=== PATIENT | female | born 1975 | race Caucasian/White ===

== ENCOUNTER 2022-10-04 12:24 | Inpatient (IN) | payer OTHER ==
[2022-10-04 13:08] VITALS: BMI 33.4
[2022-10-04] MEDS ORDERED: MAGNESIUM HYDROX 2400MG/30ML ORAL SUSPENSION 30 ML CUP PO PRN (13:29)
[2022-10-04] MEDS ORDERED: MAG HYDROX/AL HYDROX/SIMETH 30 ML UNIT-DOSE CUP PO PRN (13:29)
[2022-10-04] MEDS ORDERED: BISMUTH SUBSALICYLATE 262 MG/15 ML BTL PO PRN (13:29)
[2022-10-04] MEDS ORDERED: LOPERAMIDE HCL 2 MG CAPSULE PO PRN (13:29)
[2022-10-04] MEDS ORDERED: ONDANSETRON *ODT* 4 MG TABLET SL PRN (13:29)
[2022-10-04] MEDS ORDERED: METHOCARBAMOL 500 MG TABLET PO PRN (13:29)
[2022-10-04] MEDS ORDERED: NICOTINE 10 MG CARTRIDGE (INHALER) IH PRN (13:29)
[2022-10-04] MEDS ORDERED: DICYCLOMINE HCL 10 MG CAPSULE PO PRN (13:29)
[2022-10-04] MEDS ORDERED: ACETAMINOPHEN 325 MG TABLET (FP) PO PRN ×2 (13:29)
[2022-10-04] MEDS ORDERED: POLYETHYLENE GLYCOL (HEALTHYLAX) 3350 17 GM PACKET PO PRN (13:29)
[2022-10-04] MEDS ORDERED: hydrOXYzine PAMOATE 25 MG CAPSULE (FP) PO PRN (13:29)
[2022-10-04] MEDS ORDERED: IBUPROFEN 600 MG TABLET (FP) PO PRN (13:29)
[2022-10-04] MEDS ORDERED: LORazepam 1 MG TABLET PO PRN (13:29)
[2022-10-04] MEDS ORDERED: IBUPROFEN 400 MG TABLET (FP) PO PRN (13:29)
[2022-10-04] MEDS ORDERED: BENZOCAINE/MENTHOL (CHLORASEPTIC ) LOZENGE MM PRN (13:29)
[2022-10-04] MEDS ORDERED: NALOXONE HCL (KLOXXADO) 8 MG SPRAY NS PRN (13:29)
[2022-10-04] MEDS ORDERED: LORazepam 1 MG TABLET ONE (14:11)
[2022-10-04] MEDS: NICOTINE 14 MG/24 HOURS TOPICAL PATCH TD SCH (15:06)
[2022-10-04] MEDS: PRENATAL VITAMINS W/ FOLIC ACID TABLET (FP) PO SCH (15:06)
[2022-10-04] MEDS: LORazepam 2 MG TABLET PO SCH ×2 (17:21→22:00)
[2022-10-04] MEDS: metFORMIN HCL 500 MG TABLET (FP) PO SCH (17:21)
[2022-10-04 18:11] LABS: MCH 31.9 pg (25.7-33.7); MCHC 34.2 g/dl (32.0-36.0); MEAN CELL VOLUME 93.3 fl (80-96); PLATELET COUNT 184 10^3/uL (134-434); RBC 4.39 M/mm3 (3.60-5.2); RDW 14.8 % (11.6-15.6); WHITE BLOOD COUNT 7.5 K/mm3 (4.0-10.0)
[2022-10-04 18:12] LABS: ALBUMIN 3.3 g/dl (3.4-5.0)
[2022-10-04 18:15] LABS: CREATININE 0.8 mg/dL (0.55-1.3)
[2022-10-04 18:17] LABS: BILIRUBIN,TOTAL 0.3 mg/dL (0.2-1); TOT PROT 7.2 g/dl (6.4-8.2)
[2022-10-04] MEDS: risperiDONE 1 MG TABLET PO SCH (21:47)
[2022-10-04] MEDS: QUEtiapine FUMARATE 50 MG TABLET PO SCH (21:47)
[2022-10-04] MEDS: THIAMINE HCL 100 MG TABLET (FP) PO SCH (21:48)
[2022-10-04] MEDS: APIXABAN 5 MG TABLET PO SCH (21:48)
[2022-10-04] MEDS: DIVALPROEX SODIUM 500 MG TABLET E.C. PO SCH (21:48)
[2022-10-04] MEDS: MELATONIN 5 MG TABLETS PO SCH (22:07)
[2022-10-05] MEDS: LORazepam 2 MG TABLET PO SCH ×4 (05:44→22:16)
[2022-10-05] MEDS: metFORMIN HCL 500 MG TABLET (FP) PO SCH ×2 (06:08→17:44)
[2022-10-05] MEDS ORDERED: methaDONE HCL 40 MG DISPERSABLE TABLET PO SCH (08:00)
[2022-10-05] MEDS: DIVALPROEX SODIUM 500 MG TABLET E.C. PO SCH ×2 (09:39→22:16)
[2022-10-05] MEDS: risperiDONE 1 MG TABLET PO SCH ×2 (09:39→22:16)
[2022-10-05] MEDS: APIXABAN 5 MG TABLET PO SCH ×2 (09:39→22:16)
[2022-10-05] MEDS: PRENATAL VITAMINS W/ FOLIC ACID TABLET (FP) PO SCH (09:39)
[2022-10-05] MEDS: NICOTINE 14 MG/24 HOURS TOPICAL PATCH TD SCH (09:40)
[2022-10-05] MEDS: INSULIN SLIDING SCALE (NOVOLOG) 1 VIAL SQ SCH ×2 (11:46→17:47)
[2022-10-05] MEDS: QUEtiapine FUMARATE 50 MG TABLET PO SCH (22:16)
[2022-10-05] MEDS: MELATONIN 5 MG TABLETS PO SCH (22:16)
[2022-10-05] MEDS: THIAMINE HCL 100 MG TABLET (FP) PO SCH (22:16)
[2022-10-06] MEDS ORDERED: INSULIN SLIDING SCALE (NOVOLOG) 1 VIAL SQ ONE (04:06)
[2022-10-06] MEDS: LORazepam 1 MG TABLET PO SCH ×4 (05:44→22:24)
[2022-10-06] MEDS: metFORMIN HCL 500 MG TABLET (FP) PO SCH ×2 (06:02→17:24)
[2022-10-06] MEDS: INSULIN SLIDING SCALE (NOVOLOG) 1 VIAL SQ SCH ×3 (06:03→17:10)
[2022-10-06] MEDS: PRENATAL VITAMINS W/ FOLIC ACID TABLET (FP) PO SCH (09:37)
[2022-10-06] MEDS: risperiDONE 1 MG TABLET PO SCH ×2 (09:37→22:23)
[2022-10-06] MEDS: DIVALPROEX SODIUM 500 MG TABLET E.C. PO SCH ×2 (09:37→22:23)
[2022-10-06] MEDS: NICOTINE 14 MG/24 HOURS TOPICAL PATCH TD SCH (09:38)
[2022-10-06] MEDS: APIXABAN 5 MG TABLET PO SCH ×2 (09:39→22:23)
[2022-10-06] MEDS: THIAMINE HCL 100 MG TABLET (FP) PO SCH (22:23)
[2022-10-06] MEDS: MELATONIN 5 MG TABLETS PO SCH (22:23)
[2022-10-06] MEDS: QUEtiapine FUMARATE 50 MG TABLET PO SCH (22:23)
[2022-10-07] MEDS ORDERED: LORazepam 0.5 MG TABLET PO PRN
[2022-10-07] MEDS: LORazepam 0.5 MG TABLET PO SCH ×4 (05:33→22:06)
[2022-10-07] MEDS: metFORMIN HCL 500 MG TABLET (FP) PO SCH ×2 (06:01→17:17)
[2022-10-07] MEDS: INSULIN SLIDING SCALE (NOVOLOG) 1 VIAL SQ SCH ×3 (06:01→17:00)
[2022-10-07] MEDS: DIVALPROEX SODIUM 500 MG TABLET E.C. PO SCH ×2 (10:08→22:06)
[2022-10-07] MEDS: PRENATAL VITAMINS W/ FOLIC ACID TABLET (FP) PO SCH (10:08)
[2022-10-07] MEDS: APIXABAN 5 MG TABLET PO SCH ×2 (10:08→22:06)
[2022-10-07] MEDS: risperiDONE 1 MG TABLET PO SCH ×2 (10:08→22:06)
[2022-10-07] MEDS: NICOTINE 14 MG/24 HOURS TOPICAL PATCH TD SCH (10:09)
[2022-10-07] MEDS: QUEtiapine FUMARATE 50 MG TABLET PO SCH (22:06)
[2022-10-07] MEDS: THIAMINE HCL 100 MG TABLET (FP) PO SCH (22:06)
[2022-10-07] MEDS: MELATONIN 5 MG TABLETS PO SCH (22:06)
[2022-10-08] MEDS ORDERED: INSULIN SLIDING SCALE (NOVOLOG) 1 VIAL SQ ONE (03:16)
[2022-10-08] MEDS ORDERED: LORazepam 0.5 MG TABLET PO ONE (05:00)
[2022-10-08] MEDS: metFORMIN HCL 500 MG TABLET (FP) PO SCH (06:30)
[2022-10-08 07:15] VITALS: RESP 18
[2022-10-08] MEDS: INSULIN SLIDING SCALE (NOVOLOG) 1 VIAL SQ SCH ×2 (08:22→11:37)
[2022-10-08 09:06] VITALS: BP 108/62; PULSE 62; TEMP 97.7
[2022-10-08] MEDS: APIXABAN 5 MG TABLET PO SCH (10:13)
[2022-10-08] MEDS: PRENATAL VITAMINS W/ FOLIC ACID TABLET (FP) PO SCH (10:13)
[2022-10-08] MEDS: DIVALPROEX SODIUM 500 MG TABLET E.C. PO SCH (10:13)
[2022-10-08] MEDS: risperiDONE 1 MG TABLET PO SCH (10:13)
[2022-10-08] MEDS: NICOTINE 14 MG/24 HOURS TOPICAL PATCH TD SCH (10:13)
== END 2022-10-08 12:50 | disposition other institution (70) | DRG 773 ==
LOC: YASAS 12:24 → Y3N 13:40
PROVIDERS: ADMIT Allergy & Immunology; ATTEND Family Medicine
PROC: HZ2ZZZZ Detoxification Services for Substance Abuse Treatment (ICD-10-PCS; principal; 2022-10-04)
DX: F10.230 Alcohol dependence with withdrawal, uncomplicated (principal); F11.20 Opioid dependence, uncomplicated; F13.20 Sedative, hypnotic or anxiolytic dependence, uncomplicated; F17.210 Nicotine dependence, cigarettes, uncomplicated; F31.9 Bipolar disorder, unspecified; E11.9 Type 2 diabetes mellitus without complications; Z79.84 Long term (current) use of oral hypoglycemic drugs; B18.2 Chronic viral hepatitis C; E66.9 Obesity, unspecified; Z68.33 Body mass index [BMI] 33.0-33.9, adult; Z88.0 Allergy status to penicillin; Z91.013 Allergy to seafood
CPT/HCPCS: 36415; 80053; 80164; 82140; 82962; 85027; 86780; 87811; C9803-CS; U0003; U0005

== ENCOUNTER 2022-10-08 13:00 | Inpatient (IN) | payer OTHER ==
[2022-10-08 13:34] VITALS: RESP 18
[2022-10-08] MEDS ORDERED: BENZOCAINE/MENTHOL (CHLORASEPTIC ) LOZENGE MM PRN (15:00)
[2022-10-08] MEDS ORDERED: NICOTINE 10 MG CARTRIDGE (INHALER) IH PRN (15:00)
[2022-10-08] MEDS ORDERED: MAG HYDROX/AL HYDROX/SIMETH 30 ML UNIT-DOSE CUP PO PRN (15:00)
[2022-10-08] MEDS ORDERED: IBUPROFEN 400 MG TABLET (FP) PO PRN (15:00)
[2022-10-08] MEDS ORDERED: P-EPHED 60MG/TRIPROLIDI 2.5MG TABLET PO PRN (15:00)
[2022-10-08] MEDS ORDERED: LOPERAMIDE HCL 2 MG CAPSULE PO PRN (15:00)
[2022-10-08] MEDS ORDERED: MAGNESIUM HYDROX 2400MG/30ML ORAL SUSPENSION 30 ML CUP PO PRN (15:00)
[2022-10-08] MEDS ORDERED: guaiFENesin 200 MG/10 ML 10 ML UNIT-DOSE CUPS PO PRN (15:00)
[2022-10-08] MEDS ORDERED: ACETAMINOPHEN 325 MG TABLET (FP) PO PRN (15:00)
[2022-10-08] MEDS ORDERED: POLYETHYLENE GLYCOL (HEALTHYLAX) 3350 17 GM PACKET PO PRN (15:00)
[2022-10-08] MEDS: hydrOXYzine PAMOATE 25 MG CAPSULE (FP) PO PRN (15:20)
[2022-10-08] MEDS: NICOTINE 21 MG/24 HOURS TOPICAL PATCH TD SCH (16:16)
[2022-10-08] MEDS: PRENATAL VITAMINS W/ FOLIC ACID TABLET (FP) PO SCH (16:16)
[2022-10-08] MEDS: INSULIN SLIDING SCALE (NOVOLOG) 1 VIAL SQ SCH ×2 (16:54→22:29)
[2022-10-08] MEDS ORDERED: QUEtiapine FUMARATE 100 MG TABLET (FP) PO SCH (22:00)
[2022-10-08] MEDS ORDERED: THIAMINE HCL 100 MG TABLET (FP) PO SCH (22:00)
[2022-10-08] MEDS ORDERED: MELATONIN 5 MG TABLETS PO SCH (22:00)
[2022-10-08] MEDS: APIXABAN 5 MG TABLET PO SCH (22:25)
[2022-10-08] MEDS: DIVALPROEX SODIUM 500 MG TABLET E.C. PO SCH (22:26)
[2022-10-08] MEDS: risperiDONE 1 MG TABLET PO SCH (22:26)
[2022-10-09] MEDS: hydrOXYzine PAMOATE 25 MG CAPSULE (FP) PO PRN (01:08)
[2022-10-09] MEDS ORDERED: methaDONE HCL 40 MG DISPERSABLE TABLET PO SCH (06:00)
[2022-10-09] MEDS: INSULIN SLIDING SCALE (NOVOLOG) 1 VIAL SQ SCH ×2 (06:50→12:04)
[2022-10-09] MEDS ORDERED: metFORMIN HCL 500 MG TABLET (FP) PO SCH (07:00)
[2022-10-09 08:28] VITALS: BP 114/69; PULSE 89; TEMP 97.5
[2022-10-09] MEDS: APIXABAN 5 MG TABLET PO SCH (10:43)
[2022-10-09] MEDS: DIVALPROEX SODIUM 500 MG TABLET E.C. PO SCH (10:43)
[2022-10-09] MEDS: risperiDONE 1 MG TABLET PO SCH (10:44)
[2022-10-09] MEDS: PRENATAL VITAMINS W/ FOLIC ACID TABLET (FP) PO SCH (10:44)
[2022-10-09] MEDS: NICOTINE 21 MG/24 HOURS TOPICAL PATCH TD SCH (10:44)
== END 2022-10-09 13:30 | disposition left against medical advice (07) | DRG 770 ==
LOC: YASAS 13:00 → Y5N 13:01
PROVIDERS: ADMIT Allergy & Immunology; ATTEND Psychiatry & Neurology Pain Medicine
PROC: HZ42ZZZ Group Counseling for Substance Abuse Treatment, Cognitive-Behavioral (ICD-10-PCS; principal; 2022-10-08)
DX: F11.20 Opioid dependence, uncomplicated (principal); F10.20 Alcohol dependence, uncomplicated; F13.20 Sedative, hypnotic or anxiolytic dependence, uncomplicated; F17.210 Nicotine dependence, cigarettes, uncomplicated; E11.9 Type 2 diabetes mellitus without complications; Z79.84 Long term (current) use of oral hypoglycemic drugs; Z86.19 Personal history of other infectious and parasitic diseases; Z88.0 Allergy status to penicillin; Z91.013 Allergy to seafood
CPT/HCPCS: 82962

== ENCOUNTER 2023-05-11 13:18 | Inpatient (IN) | payer OTHER ==
[2023-05-11 14:54] VITALS: BMI 31.9
[2023-05-11] MEDS ORDERED: POLYETHYLENE GLYCOL (HEALTHYLAX) 3350 17 GM PACKET PO PRN (16:57)
[2023-05-11] MEDS ORDERED: BENZOCAINE/MENTHOL (CHLORASEPTIC ) LOZENGE MM PRN (16:57)
[2023-05-11] MEDS ORDERED: BENZONATATE 200 MG CAPSULE PO PRN (16:57)
[2023-05-11] MEDS ORDERED: BISMUTH SUBSALICYLATE 524 MG/30 ML PO PRN (16:57)
[2023-05-11] MEDS ORDERED: IBUPROFEN 600 MG TABLET (FP) PO PRN (16:57)
[2023-05-11] MEDS ORDERED: ONDANSETRON *ODT* 4 MG TABLET SL PRN (16:57)
[2023-05-11] MEDS ORDERED: guaiFENesin 600 MG TABLET.ER (FP) PO PRN (16:57)
[2023-05-11] MEDS ORDERED: DICYCLOMINE HCL 10 MG CAPSULE PO PRN (16:57)
[2023-05-11] MEDS ORDERED: MAG HYDROX/AL HYDROX/SIMETH 30 ML UNIT-DOSE CUP PO PRN (16:57)
[2023-05-11] MEDS ORDERED: NALOXONE HCL 0.4 MG/ML VIAL IM PRN (16:57)
[2023-05-11] MEDS ORDERED: NALOXONE HCL (KLOXXADO) 8 MG SPRAY NS PRN (16:57)
[2023-05-11] MEDS ORDERED: MAGNESIUM HYDROX 2400MG/30ML ORAL SUSPENSION 30 ML CUP PO PRN (16:57)
[2023-05-11] MEDS ORDERED: diazePAM 5 MG TABLET PO PRN (16:57)
[2023-05-11] MEDS ORDERED: IBUPROFEN 400 MG TABLET (FP) PO PRN (16:57)
[2023-05-11] MEDS ORDERED: LOPERAMIDE HCL 2 MG CAPSULE PO PRN (16:57)
[2023-05-11] MEDS ORDERED: diazePAM 5 MG TABLET ONE (17:48)
[2023-05-11] MEDS: diazePAM 5 MG TABLET PO SCH ×2 (17:50→22:24)
[2023-05-11] MEDS: THIAMINE HCL 100 MG TABLET (FP) PO SCH (22:23)
[2023-05-11] MEDS: METHOCARBAMOL 500 MG TABLET PO PRN (22:23)
[2023-05-11] MEDS: MELATONIN 5 MG TABLETS PO SCH (22:23)
[2023-05-12] MEDS: diazePAM 5 MG TABLET PO SCH ×4 (05:35→22:02)
[2023-05-12] MEDS: METHOCARBAMOL 500 MG TABLET PO PRN (10:42)
[2023-05-12] MEDS: PRENATAL VITAMINS W/ FOLIC ACID TABLET (FP) PO SCH (10:42)
[2023-05-12] MEDS: hydrOXYzine PAMOATE 25 MG CAPSULE (FP) PO PRN (10:42)
[2023-05-12] MEDS: DIVALPROEX SODIUM 500 MG TABLET E.C. PO SCH ×2 (10:43→22:00)
[2023-05-12] MEDS ORDERED: methaDONE HCL 40 MG DISPERSABLE TABLET PO SCH ×3 (12:00→14:22)
[2023-05-12] MEDS: methaDONE HCL 40 MG DISPERSABLE TABLET PO SCH (14:36)
[2023-05-12] MEDS: ACETAMINOPHEN 325 MG TABLET (FP) PO PRN (17:25)
[2023-05-12] MEDS: risperiDONE 1 MG TABLET PO SCH (22:00)
[2023-05-12] MEDS: APIXABAN 5 MG TABLET PO SCH (22:00)
[2023-05-12] MEDS: MELATONIN 5 MG TABLETS PO SCH (22:00)
[2023-05-12] MEDS: THIAMINE HCL 100 MG TABLET (FP) PO SCH (22:00)
[2023-05-12] MEDS: QUEtiapine FUMARATE 100 MG TABLET (FP) PO SCH (22:01)
[2023-05-13] MEDS: metFORMIN HCL 500 MG TABLET (FP) PO SCH ×2 (06:02→17:14)
[2023-05-13] MEDS: methaDONE HCL 40 MG DISPERSABLE TABLET PO SCH (06:02)
[2023-05-13] MEDS: diazePAM 5 MG TABLET PO SCH ×3 (06:03→22:10)
[2023-05-13] MEDS: hydrOXYzine PAMOATE 25 MG CAPSULE (FP) PO PRN ×2 (10:16→17:14)
[2023-05-13] MEDS: PRENATAL VITAMINS W/ FOLIC ACID TABLET (FP) PO SCH (10:16)
[2023-05-13] MEDS: DIVALPROEX SODIUM 500 MG TABLET E.C. PO SCH ×2 (10:16→22:10)
[2023-05-13] MEDS: APIXABAN 5 MG TABLET PO SCH ×2 (10:16→22:10)
[2023-05-13] MEDS: METHOCARBAMOL 500 MG TABLET PO PRN (10:17)
[2023-05-13 10:21] LABS: POTASSIUM 4.3 mmol/L (3.5-5.1)
[2023-05-13 10:31] LABS: ALBUMIN 3.1 g/dl (3.4-5.0)
[2023-05-13 10:32] LABS: BLOOD UREA NITROGEN 9.6 mg/dL (7-18)
[2023-05-13 10:33] LABS: HEMATOCRIT 40.2 % (32.4-45.2); HEMOGLOBIN 13.6 GM/dL (10.7-15.3); MCH 30.7 pg (25.7-33.7); MCHC 33.9 g/dl (32.0-36.0); MEAN CELL VOLUME 90.6 fl (80-96); MEAN PLT VOLUME 10.8 fl (7.5-11.1); PLATELET COUNT 193 10^3/uL (134-434); RBC 4.44 M/mm3 (3.60-5.2); RDW 13.9 % (11.6-15.6); WHITE BLOOD COUNT 8.4 K/mm3 (4.0-10.0)
[2023-05-13 10:35] LABS: CREATININE 0.5 mg/dL (0.55-1.3)
[2023-05-13 10:36] LABS: BILIRUBIN,TOTAL 0.4 mg/dL (0.2-1)
[2023-05-13] MEDS: ACETAMINOPHEN 325 MG TABLET (FP) PO PRN (17:15)
[2023-05-13] MEDS: THIAMINE HCL 100 MG TABLET (FP) PO SCH (22:09)
[2023-05-13] MEDS: risperiDONE 1 MG TABLET PO SCH (22:09)
[2023-05-13] MEDS: MELATONIN 5 MG TABLETS PO SCH (22:09)
[2023-05-13] MEDS: QUEtiapine FUMARATE 100 MG TABLET (FP) PO SCH (22:11)
[2023-05-14] MEDS: methaDONE HCL 40 MG DISPERSABLE TABLET PO SCH (06:12)
[2023-05-14] MEDS: diazePAM 5 MG TABLET PO SCH ×2 (06:12→17:50)
[2023-05-14] MEDS: metFORMIN HCL 500 MG TABLET (FP) PO SCH ×2 (06:19→16:55)
[2023-05-14] MEDS: PRENATAL VITAMINS W/ FOLIC ACID TABLET (FP) PO SCH (10:10)
[2023-05-14] MEDS: APIXABAN 5 MG TABLET PO SCH ×2 (10:10→22:22)
[2023-05-14] MEDS: hydrOXYzine PAMOATE 25 MG CAPSULE (FP) PO PRN (10:10)
[2023-05-14] MEDS: METHOCARBAMOL 500 MG TABLET PO PRN (10:10)
[2023-05-14] MEDS: DIVALPROEX SODIUM 500 MG TABLET E.C. PO SCH ×2 (10:39→22:22)
[2023-05-14 21:30] VITALS: RESP 18
[2023-05-14] MEDS: risperiDONE 1 MG TABLET PO SCH (22:21)
[2023-05-14] MEDS: QUEtiapine FUMARATE 100 MG TABLET (FP) PO SCH (22:22)
[2023-05-14] MEDS: THIAMINE HCL 100 MG TABLET (FP) PO SCH (22:22)
[2023-05-14] MEDS: MELATONIN 5 MG TABLETS PO SCH (22:22)
[2023-05-15] MEDS: methaDONE HCL 40 MG DISPERSABLE TABLET PO SCH (05:45)
[2023-05-15] MEDS: ACETAMINOPHEN 325 MG TABLET (FP) PO PRN (05:46)
[2023-05-15] MEDS ORDERED: diazePAM 5 MG TABLET PO ONE (06:00)
[2023-05-15] MEDS: metFORMIN HCL 500 MG TABLET (FP) PO SCH (06:06)
[2023-05-15 06:38] VITALS: TEMP 97.7
[2023-05-15 09:32] VITALS: BP 118/61; PULSE 81
[2023-05-15] MEDS: APIXABAN 5 MG TABLET PO SCH (10:22)
[2023-05-15] MEDS: METHOCARBAMOL 500 MG TABLET PO PRN (10:23)
[2023-05-15] MEDS: PRENATAL VITAMINS W/ FOLIC ACID TABLET (FP) PO SCH (10:23)
[2023-05-15] MEDS: DIVALPROEX SODIUM 500 MG TABLET E.C. PO SCH (10:23)
== END 2023-05-15 12:31 | disposition other institution (70) | DRG 773 ==
LOC: YASAS 13:18 → Y6N 17:26
PROVIDERS: ADMIT Allergy & Immunology; ATTEND Surgery
PROC: HZ2ZZZZ Detoxification Services for Substance Abuse Treatment (ICD-10-PCS; principal; 2023-05-11)
DX: F10.230 Alcohol dependence with withdrawal, uncomplicated (principal); F11.20 Opioid dependence, uncomplicated; F13.20 Sedative, hypnotic or anxiolytic dependence, uncomplicated; F14.20 Cocaine dependence, uncomplicated; F17.210 Nicotine dependence, cigarettes, uncomplicated; F31.9 Bipolar disorder, unspecified; E11.9 Type 2 diabetes mellitus without complications; Z79.84 Long term (current) use of oral hypoglycemic drugs; Z86.19 Personal history of other infectious and parasitic diseases; Z86.711 Personal history of pulmonary embolism; Z79.01 Long term (current) use of anticoagulants; Z86.69 Personal history of other diseases of the nervous system and sense organs; Z88.0 Allergy status to penicillin
CPT/HCPCS: 36415; 80053; 80164; 80305; 81025; 82962; 85027; 86780; 87635; Q0162

== ENCOUNTER 2023-05-15 12:47 | Inpatient (IN) | payer OTHER ==
[2023-05-15] MEDS ORDERED: MAGNESIUM HYDROX 2400MG/30ML ORAL SUSPENSION 30 ML CUP PO PRN (14:07)
[2023-05-15] MEDS ORDERED: AMMONIUM LACTATE 12% LOTION 225 GM BOTTLE TP PRN (14:07)
[2023-05-15] MEDS ORDERED: MAG HYDROX/AL HYDROX/SIMETH 30 ML UNIT-DOSE CUP PO PRN (14:07)
[2023-05-15] MEDS ORDERED: hydrOXYzine PAMOATE 25 MG CAPSULE (FP) PO PRN (14:07)
[2023-05-15] MEDS ORDERED: guaiFENesin 600 MG TABLET.ER (FP) PO PRN (14:07)
[2023-05-15] MEDS ORDERED: POLYETHYLENE GLYCOL (HEALTHYLAX) 3350 17 GM PACKET PO PRN (14:07)
[2023-05-15] MEDS ORDERED: NALOXONE HCL (KLOXXADO) 8 MG SPRAY NS PRN (14:07)
[2023-05-15] MEDS ORDERED: NALOXONE HCL 0.4 MG/ML VIAL IVPUSH PRN (14:07)
[2023-05-15] MEDS ORDERED: IBUPROFEN 600 MG TABLET (FP) PO PRN (14:07)
[2023-05-15] MEDS ORDERED: LOPERAMIDE HCL 2 MG CAPSULE PO PRN (14:07)
[2023-05-15] MEDS ORDERED: BENZONATATE 200 MG CAPSULE PO PRN (14:07)
[2023-05-15] MEDS ORDERED: COLLOIDAL OATMEAL 1 BAR EACH TP PRN (14:07)
[2023-05-15] MEDS ORDERED: IBUPROFEN 400 MG TABLET (FP) PO PRN (14:07)
[2023-05-15] MEDS ORDERED: BENZOCAINE/MENTHOL (CHLORASEPTIC ) LOZENGE MM PRN (14:07)
[2023-05-15] MEDS: NICOTINE 21 MG/24 HOURS TOPICAL PATCH TD SCH (15:40)
[2023-05-15] MEDS: PRENATAL VITAMINS W/ FOLIC ACID TABLET (FP) PO SCH (15:40)
[2023-05-15] MEDS: INSULIN SLIDING SCALE (NOVOLOG) 1 VIAL SQ SCH (16:57)
[2023-05-15] MEDS: metFORMIN HCL 500 MG TABLET (FP) PO SCH (16:57)
[2023-05-15] MEDS: DIVALPROEX SODIUM 500 MG TABLET E.C. PO SCH (21:48)
[2023-05-15] MEDS: THIAMINE HCL 100 MG TABLET (FP) PO SCH (21:48)
[2023-05-15] MEDS: APIXABAN 5 MG TABLET PO SCH (21:48)
[2023-05-15] MEDS: QUEtiapine FUMARATE 50 MG TABLET PO SCH (21:49)
[2023-05-15] MEDS: risperiDONE 3 MG TABLET PO SCH (21:49)
[2023-05-15] MEDS ORDERED: QUEtiapine FUMARATE 100 MG TABLET (FP) PO SCH (22:00)
[2023-05-15] MEDS ORDERED: MELATONIN 5 MG TABLETS PO SCH (22:00)
[2023-05-15] MEDS: METHOCARBAMOL 500 MG TABLET PO PRN (22:23)
[2023-05-16] MEDS: metFORMIN HCL 500 MG TABLET (FP) PO SCH ×2 (06:22→16:24)
[2023-05-16] MEDS: INSULIN SLIDING SCALE (NOVOLOG) 1 VIAL SQ SCH ×2 (06:23→17:11)
[2023-05-16] MEDS: methaDONE HCL 40 MG DISPERSABLE TABLET PO SCH (06:23)
[2023-05-16] MEDS: PRENATAL VITAMINS W/ FOLIC ACID TABLET (FP) PO SCH (10:17)
[2023-05-16] MEDS: NICOTINE 21 MG/24 HOURS TOPICAL PATCH TD SCH (10:18)
[2023-05-16] MEDS: APIXABAN 5 MG TABLET PO SCH ×2 (10:18→22:00)
[2023-05-16] MEDS: DIVALPROEX SODIUM 500 MG TABLET E.C. PO SCH ×2 (10:18→22:01)
[2023-05-16] MEDS: ACETAMINOPHEN 325 MG TABLET (FP) PO PRN ×2 (15:22→18:58)
[2023-05-16] MEDS: QUEtiapine FUMARATE 50 MG TABLET PO SCH (22:00)
[2023-05-16] MEDS: THIAMINE HCL 100 MG TABLET (FP) PO SCH (22:00)
[2023-05-16] MEDS: risperiDONE 3 MG TABLET PO SCH (22:01)
[2023-05-17] MEDS: methaDONE HCL 40 MG DISPERSABLE TABLET PO SCH (06:05)
[2023-05-17] MEDS: metFORMIN HCL 500 MG TABLET (FP) PO SCH ×2 (06:05→16:32)
[2023-05-17] MEDS: INSULIN SLIDING SCALE (NOVOLOG) 1 VIAL SQ SCH ×2 (06:06→17:10)
[2023-05-17 07:07] VITALS: RESP 18
[2023-05-17] MEDS: ACETAMINOPHEN 325 MG TABLET (FP) PO PRN ×2 (08:30→19:45)
[2023-05-17] MEDS: PRENATAL VITAMINS W/ FOLIC ACID TABLET (FP) PO SCH (10:00)
[2023-05-17] MEDS: APIXABAN 5 MG TABLET PO SCH ×2 (10:01→21:18)
[2023-05-17] MEDS: DIVALPROEX SODIUM 500 MG TABLET E.C. PO SCH ×2 (10:01→21:18)
[2023-05-17] MEDS: NICOTINE 21 MG/24 HOURS TOPICAL PATCH TD SCH (10:01)
[2023-05-17] MEDS: METHOCARBAMOL 500 MG TABLET PO PRN ×2 (10:01→21:18)
[2023-05-17] MEDS: LIDOCAINE 4% PATCH TP SCH (13:07)
[2023-05-17] MEDS: QUEtiapine FUMARATE 50 MG TABLET PO SCH (21:18)
[2023-05-17] MEDS: risperiDONE 3 MG TABLET PO SCH (21:18)
[2023-05-17] MEDS: THIAMINE HCL 100 MG TABLET (FP) PO SCH (21:18)
[2023-05-17] MEDS: METHYL SALICYLATE/MENTHOL OINT 30 GM TUBE TP SCH (21:20)
[2023-05-17] MEDS: LIDOCAINE PATCH REMOVAL MC SCH (21:20)
[2023-05-18] MEDS ORDERED: INSULIN (NOVOLOG) ASPART 100 UNITS/ML 10ML VIAL ONE (06:06)
[2023-05-18] MEDS: methaDONE HCL 40 MG DISPERSABLE TABLET PO SCH (06:07)
[2023-05-18] MEDS: metFORMIN HCL 500 MG TABLET (FP) PO SCH ×2 (06:07→17:28)
[2023-05-18] MEDS: METHOCARBAMOL 500 MG TABLET PO PRN ×2 (06:08→17:27)
[2023-05-18] MEDS: INSULIN SLIDING SCALE (NOVOLOG) 1 VIAL SQ SCH ×2 (06:10→17:26)
[2023-05-18] MEDS: DIVALPROEX SODIUM 500 MG TABLET E.C. PO SCH ×2 (09:51→21:16)
[2023-05-18] MEDS: PRENATAL VITAMINS W/ FOLIC ACID TABLET (FP) PO SCH (09:51)
[2023-05-18] MEDS: LIDOCAINE 4% PATCH TP SCH (09:51)
[2023-05-18] MEDS: APIXABAN 5 MG TABLET PO SCH ×2 (09:51→21:16)
[2023-05-18] MEDS: NICOTINE 21 MG/24 HOURS TOPICAL PATCH TD SCH (09:51)
[2023-05-18] MEDS: METHYL SALICYLATE/MENTHOL OINT 30 GM TUBE TP SCH ×2 (09:53→21:17)
[2023-05-18] MEDS: LIDOCAINE PATCH REMOVAL MC SCH (21:16)
[2023-05-18] MEDS: QUEtiapine FUMARATE 50 MG TABLET PO SCH (21:16)
[2023-05-18] MEDS: risperiDONE 3 MG TABLET PO SCH (21:16)
[2023-05-18] MEDS: THIAMINE HCL 100 MG TABLET (FP) PO SCH (21:17)
[2023-05-19] MEDS: ACETAMINOPHEN 325 MG TABLET (FP) PO PRN (03:10)
[2023-05-19] MEDS: methaDONE HCL 40 MG DISPERSABLE TABLET PO SCH (06:08)
[2023-05-19] MEDS: metFORMIN HCL 500 MG TABLET (FP) PO SCH (06:08)
[2023-05-19] MEDS: INSULIN SLIDING SCALE (NOVOLOG) 1 VIAL SQ SCH (06:09)
[2023-05-19 07:24] VITALS: BP 100/60; PULSE 79; TEMP 96.9
[2023-05-19] MEDS: DIVALPROEX SODIUM 500 MG TABLET E.C. PO SCH (10:27)
[2023-05-19] MEDS: APIXABAN 5 MG TABLET PO SCH (10:27)
[2023-05-19] MEDS: LIDOCAINE 4% PATCH TP SCH (10:27)
[2023-05-19] MEDS: PRENATAL VITAMINS W/ FOLIC ACID TABLET (FP) PO SCH (10:27)
[2023-05-19] MEDS: METHOCARBAMOL 500 MG TABLET PO PRN (10:27)
[2023-05-19] MEDS: METHYL SALICYLATE/MENTHOL OINT 30 GM TUBE TP SCH (10:28)
[2023-05-19] MEDS: NICOTINE 21 MG/24 HOURS TOPICAL PATCH TD SCH (10:28)
[2023-05-19] MEDS ORDERED: SUVOREXANT 10 MG TABLET PO PRN (22:00)
== END 2023-05-19 16:00 | disposition left against medical advice (07) | DRG 770 ==
LOC: YASAS 12:47 → Y5N 12:48
PROVIDERS: ADMIT Allergy & Immunology; ATTEND Psychiatry & Neurology Pain Medicine
PROC: HZ42ZZZ Group Counseling for Substance Abuse Treatment, Cognitive-Behavioral (ICD-10-PCS; principal; 2023-05-15)
DX: F10.20 Alcohol dependence, uncomplicated (principal); F11.20 Opioid dependence, uncomplicated; F13.20 Sedative, hypnotic or anxiolytic dependence, uncomplicated; F14.20 Cocaine dependence, uncomplicated; F17.210 Nicotine dependence, cigarettes, uncomplicated; F19.282 Other psychoactive substance dependence with psychoactive substance-induced sleep disorder; E78.5 Hyperlipidemia, unspecified; E11.9 Type 2 diabetes mellitus without complications; Z79.84 Long term (current) use of oral hypoglycemic drugs; Z86.19 Personal history of other infectious and parasitic diseases; Z88.0 Allergy status to penicillin
CPT/HCPCS: 82962

== ENCOUNTER 2023-08-29 10:25 | Inpatient (IN) | payer OTHER ==
[2023-08-29 11:31] VITALS: BMI 31.9
[2023-08-29] MEDS ORDERED: BENZONATATE 200 MG CAPSULE PO PRN (11:49)
[2023-08-29] MEDS ORDERED: MAGNESIUM HYDROX 2400MG/30ML ORAL SUSPENSION 30 ML CUP PO PRN (11:49)
[2023-08-29] MEDS ORDERED: POLYETHYLENE GLYCOL (HEALTHYLAX) 3350 17 GM PACKET PO PRN (11:49)
[2023-08-29] MEDS ORDERED: MAG HYDROX/AL HYDROX/SIMETH 30 ML UNIT-DOSE CUP PO PRN (11:49)
[2023-08-29] MEDS ORDERED: LOPERAMIDE HCL 2 MG CAPSULE PO PRN (11:49)
[2023-08-29] MEDS ORDERED: IBUPROFEN 400 MG TABLET (FP) PO PRN (11:49)
[2023-08-29] MEDS ORDERED: guaiFENesin 600 MG TABLET.ER (FP) PO PRN (11:49)
[2023-08-29] MEDS ORDERED: ACETAMINOPHEN 325 MG TABLET (FP) PO PRN (11:49)
[2023-08-29] MEDS ORDERED: NALOXONE HCL 0.4 MG/ML VIAL IM PRN (11:49)
[2023-08-29] MEDS ORDERED: DICYCLOMINE HCL 10 MG CAPSULE PO PRN (11:49)
[2023-08-29] MEDS ORDERED: NALOXONE HCL (KLOXXADO) 8 MG SPRAY NS PRN (11:49)
[2023-08-29] MEDS ORDERED: BISMUTH SUBSALICYLATE 262 MG/15 ML BTL PO PRN (11:49)
[2023-08-29] MEDS ORDERED: BENZOCAINE/MENTHOL (CHLORASEPTIC ) LOZENGE MM PRN (11:49)
[2023-08-29] MEDS ORDERED: METHOCARBAMOL 500 MG TABLET PO PRN (11:49)
[2023-08-29] MEDS ORDERED: ONDANSETRON *ODT* 4 MG TABLET SL PRN (11:49)
[2023-08-29] MEDS ORDERED: IBUPROFEN 600 MG TABLET (FP) PO PRN (11:49)
[2023-08-29] MEDS: PRENATAL VITAMINS W/ FOLIC ACID TABLET (FP) PO SCH (12:14)
[2023-08-29] MEDS: diazePAM 5 MG TABLET PO SCH ×3 (12:14→22:28)
[2023-08-29] MEDS ORDERED: diazePAM 5 MG TABLET ONE (12:20)
[2023-08-29] MEDS ORDERED: PRENATAL VITAMINS W/ FOLIC ACID TABLET (FP) PO ONE (12:20)
[2023-08-29] MEDS: hydrOXYzine PAMOATE 25 MG CAPSULE (FP) PO PRN (17:58)
[2023-08-29] MEDS: THIAMINE HCL 100 MG TABLET (FP) PO SCH (22:27)
[2023-08-29] MEDS: APIXABAN 5 MG TABLET PO SCH (22:27)
[2023-08-29] MEDS: MELATONIN 5 MG TABLETS PO SCH (22:27)
[2023-08-30] MEDS: diazePAM 5 MG TABLET PO SCH ×4 (05:42→22:39)
[2023-08-30 10:14] LABS: POTASSIUM 3.6 mmol/L (3.5-5.1)
[2023-08-30 10:16] LABS: ALBUMIN 3.5 g/dl (3.4-5.0); BLOOD UREA NITROGEN 8.4 mg/dL (7-18); CALCIUM 9.9 mg/dL (8.5-10.1)
[2023-08-30 10:19] LABS: CREATININE 0.7 mg/dL (0.55-1.3)
[2023-08-30] MEDS: PRENATAL VITAMINS W/ FOLIC ACID TABLET (FP) PO SCH (10:20)
[2023-08-30] MEDS: APIXABAN 5 MG TABLET PO SCH ×2 (10:20→22:39)
[2023-08-30 10:21] LABS: BILIRUBIN,TOTAL 0.2 mg/dL (0.2-1); TOT PROT 7.7 g/dl (6.4-8.2)
[2023-08-30] MEDS: NICOTINE 14 MG/24 HOURS TOPICAL PATCH TD SCH (10:21)
[2023-08-30 10:23] LABS: HEMATOCRIT 39.4 % (32.4-45.2); HEMOGLOBIN 13.3 GM/dL (10.7-15.3); MCH 30.1 pg (25.7-33.7); MCHC 33.7 g/dl (32.0-36.0); MEAN CELL VOLUME 89.5 fl (80-96); MEAN PLT VOLUME 10.2 fl (7.5-11.1); PLATELET COUNT 292 10^3/uL (134-434); RDW 13.4 % (11.6-15.6)
[2023-08-30] MEDS ORDERED: methaDONE HCL 10 MG TABLET PO ONE (11:22)
[2023-08-30] MEDS: LACTULOSE 20 GM/30 ML UDC (FOR ORAL USE ONLY) PO SCH ×3 (13:31→22:38)
[2023-08-30] MEDS: THIAMINE HCL 100 MG TABLET (FP) PO SCH (22:39)
[2023-08-30] MEDS: MELATONIN 5 MG TABLETS PO SCH (22:39)
[2023-08-30] MEDS: hydrOXYzine PAMOATE 25 MG CAPSULE (FP) PO PRN (22:43)
[2023-08-31] MEDS ORDERED: methaDONE HCL 10 MG TABLET PO SCH (06:00)
[2023-08-31] MEDS: diazePAM 5 MG TABLET PO SCH ×3 (06:03→22:22)
[2023-08-31] MEDS: metFORMIN HCL 500 MG TABLET (FP) PO SCH ×2 (07:16→16:40)
[2023-08-31] MEDS: NICOTINE 14 MG/24 HOURS TOPICAL PATCH TD SCH (10:23)
[2023-08-31] MEDS: LACTULOSE 20 GM/30 ML UDC (FOR ORAL USE ONLY) PO SCH ×4 (10:25→22:22)
[2023-08-31] MEDS: PRENATAL VITAMINS W/ FOLIC ACID TABLET (FP) PO SCH (10:25)
[2023-08-31] MEDS: APIXABAN 5 MG TABLET PO SCH ×2 (10:25→22:22)
[2023-08-31] MEDS: diazePAM 5 MG TABLET PO PRN (16:40)
[2023-08-31] MEDS: THIAMINE HCL 100 MG TABLET (FP) PO SCH (22:22)
[2023-08-31] MEDS: MELATONIN 5 MG TABLETS PO SCH (22:22)
[2023-08-31] MEDS: INSULIN (NOVOLOG) ASPART 100 UNITS/ML 10ML VIAL SQ SCH (22:28)
[2023-09-01] MEDS: diazePAM 5 MG TABLET PO SCH ×2 (05:53→17:52)
[2023-09-01] MEDS: INSULIN (NOVOLOG) ASPART 100 UNITS/ML 10ML VIAL SQ SCH ×3 (05:57→11:33)
[2023-09-01] MEDS: metFORMIN HCL 500 MG TABLET (FP) PO SCH ×2 (06:22→17:51)
[2023-09-01] MEDS: APIXABAN 5 MG TABLET PO SCH ×2 (10:21→22:38)
[2023-09-01] MEDS: LACTULOSE 20 GM/30 ML UDC (FOR ORAL USE ONLY) PO SCH ×4 (10:21→22:39)
[2023-09-01] MEDS: PRENATAL VITAMINS W/ FOLIC ACID TABLET (FP) PO SCH (10:21)
[2023-09-01] MEDS: NICOTINE 14 MG/24 HOURS TOPICAL PATCH TD SCH (10:22)
[2023-09-01] MEDS: diazePAM 5 MG TABLET PO PRN (10:25)
[2023-09-01 10:56] LABS: BASO % 0.6 % (0-2.0); EOS % 3.2 % (0-4.5); HEMATOCRIT 38.7 % (32.4-45.2); HEMOGLOBIN 13.3 GM/dL (10.7-15.3); LYMPH % 36.4 % (8-40); MCH 30.6 pg (25.7-33.7); MCHC 34.5 g/dl (32.0-36.0); MEAN CELL VOLUME 88.9 fl (80-96); MEAN PLT VOLUME 9.8 fl (7.5-11.1); MONO % 5.2 % (3.8-10.2); NEUT % 54.6 % (42.8-82.8); PLATELET COUNT 259 10^3/uL (134-434); RBC 4.35 M/mm3 (3.60-5.2); RDW 13.2 % (11.6-15.6); WHITE BLOOD COUNT 9.9 K/mm3 (4.0-10.0)
[2023-09-01] MEDS: INSULIN SLIDING SCALE (NOVOLOG) 1 VIAL SQ SCH ×2 (17:55→22:46)
[2023-09-01] MEDS: MELATONIN 5 MG TABLETS PO SCH (22:38)
[2023-09-01] MEDS: THIAMINE HCL 100 MG TABLET (FP) PO SCH (22:38)
[2023-09-02] MEDS ORDERED: diazePAM 5 MG TABLET PO ONE (06:00)
[2023-09-02] MEDS: metFORMIN HCL 500 MG TABLET (FP) PO SCH ×2 (06:38→17:20)
[2023-09-02] MEDS: INSULIN SLIDING SCALE (NOVOLOG) 1 VIAL SQ SCH ×4 (06:39→22:27)
[2023-09-02] MEDS: APIXABAN 5 MG TABLET PO SCH ×2 (10:16→22:20)
[2023-09-02] MEDS: PRENATAL VITAMINS W/ FOLIC ACID TABLET (FP) PO SCH (10:16)
[2023-09-02] MEDS: LACTULOSE 20 GM/30 ML UDC (FOR ORAL USE ONLY) PO SCH ×4 (10:16→22:22)
[2023-09-02] MEDS: NICOTINE 14 MG/24 HOURS TOPICAL PATCH TD SCH (10:17)
[2023-09-02] MEDS: hydrOXYzine PAMOATE 25 MG CAPSULE (FP) PO PRN (10:43)
[2023-09-02] MEDS: DIVALPROEX SODIUM 500 MG TABLET E.C. PO SCH ×2 (13:43→22:22)
[2023-09-02] MEDS ORDERED: risperiDONE 1 MG TABLET PO SCH (22:00)
[2023-09-02] MEDS ORDERED: QUEtiapine FUMARATE 100 MG TABLET (FP) PO SCH (22:00)
[2023-09-02] MEDS ORDERED: SUVOREXANT 10 MG TABLET PO PRN (22:00)
[2023-09-02] MEDS ORDERED: QUEtiapine FUMARATE 50 MG TABLET PO SCH (22:00)
[2023-09-02] MEDS: THIAMINE HCL 100 MG TABLET (FP) PO SCH (22:20)
[2023-09-03] MEDS: metFORMIN HCL 500 MG TABLET (FP) PO SCH (06:08)
[2023-09-03] MEDS: INSULIN SLIDING SCALE (NOVOLOG) 1 VIAL SQ SCH ×2 (07:37→11:51)
[2023-09-03] MEDS: LACTULOSE 20 GM/30 ML UDC (FOR ORAL USE ONLY) PO SCH ×2 (10:22→13:13)
[2023-09-03] MEDS: NICOTINE 14 MG/24 HOURS TOPICAL PATCH TD SCH (10:23)
[2023-09-03] MEDS: PRENATAL VITAMINS W/ FOLIC ACID TABLET (FP) PO SCH (10:23)
[2023-09-03] MEDS: DIVALPROEX SODIUM 500 MG TABLET E.C. PO SCH (10:23)
[2023-09-03] MEDS: APIXABAN 5 MG TABLET PO SCH (10:35)
[2023-09-03 11:05] VITALS: RESP 16
[2023-09-03 13:46] VITALS: BP 105/60; PULSE 66; TEMP 97.3
== END 2023-09-03 14:36 | disposition home or self-care (01) | DRG 773 ==
LOC: YASAS 10:25 → Y6N 12:34
PROVIDERS: ADMIT Allergy & Immunology; ATTEND Surgery
PROC: HZ2ZZZZ Detoxification Services for Substance Abuse Treatment (ICD-10-PCS; principal; 2023-08-29)
DX: F10.230 Alcohol dependence with withdrawal, uncomplicated (principal); F11.20 Opioid dependence, uncomplicated; F14.20 Cocaine dependence, uncomplicated; F17.213 Nicotine dependence, cigarettes, with withdrawal; F19.282 Other psychoactive substance dependence with psychoactive substance-induced sleep disorder; F19.24 Other psychoactive substance dependence with psychoactive substance-induced mood disorder; F31.9 Bipolar disorder, unspecified; E11.9 Type 2 diabetes mellitus without complications; Z79.4 Long term (current) use of insulin; R79.89 Other specified abnormal findings of blood chemistry; Z62.810 Personal history of physical and sexual abuse in childhood; Z91.410 Personal history of adult physical and sexual abuse; Z63.8 Other specified problems related to primary support group; Z88.0 Allergy status to penicillin
CPT/HCPCS: 36415; 80053; 80305; 80307; 81025; 82140; 82962; 85025; 85027; 86780; 87635

== ENCOUNTER 2024-04-14 10:18 | Inpatient (IN) | payer OTHER ==
[2024-04-14 10:42] VITALS: BMI 32.9
[2024-04-14] MEDS ORDERED: IBUPROFEN 400 MG TABLET (FP) PO PRN (11:07)
[2024-04-14] MEDS ORDERED: guaiFENesin 600 MG TABLET.ER (FP) PO PRN (11:07)
[2024-04-14] MEDS ORDERED: NALOXONE (NARCAN) HCL 4 MG/0.1 ML SPRAY NS PRN (11:07)
[2024-04-14] MEDS ORDERED: BISMUTH SUBSALICYLATE 262 MG/15 ML BTL PO PRN (11:07)
[2024-04-14] MEDS ORDERED: MAGNESIUM HYDROX 2400MG/30ML ORAL SUSPENSION 30 ML CUP PO PRN (11:07)
[2024-04-14] MEDS ORDERED: BENZOCAINE/MENTHOL (CHLORASEPTIC ) LOZENGE MM PRN (11:07)
[2024-04-14] MEDS ORDERED: NALOXONE HCL 0.4 MG/ML VIAL IM PRN (11:07)
[2024-04-14] MEDS ORDERED: DICYCLOMINE HCL 10 MG CAPSULE PO PRN (11:07)
[2024-04-14] MEDS ORDERED: LOPERAMIDE HCL 2 MG CAPSULE PO PRN (11:07)
[2024-04-14] MEDS ORDERED: MAG HYDROX/AL HYDROX/SIMETH 30 ML UNIT-DOSE CUP PO PRN (11:07)
[2024-04-14] MEDS ORDERED: ONDANSETRON *ODT* 4 MG TABLET SL PRN (11:07)
[2024-04-14] MEDS ORDERED: NICOTINE POLACRILEX 2 MG GUM BUC PRN (11:07)
[2024-04-14] MEDS ORDERED: NICOTINE POLACRILEX 2 MG LOZENGE BC PRN (11:07)
[2024-04-14] MEDS ORDERED: POLYETHYLENE GLYCOL (HEALTHYLAX) 3350 17 GM PACKET PO PRN (11:07)
[2024-04-14] MEDS ORDERED: METHOCARBAMOL 500 MG TABLET PO PRN (11:07)
[2024-04-14] MEDS ORDERED: BENZONATATE 200 MG CAPSULE PO PRN (11:07)
[2024-04-14] MEDS ORDERED: INSULIN (NOVOLOG) ASPART 100 UNITS/ML 10ML VIAL ONE (11:49)
[2024-04-14] MEDS: INSULIN ASPART SLIDING SCALE (NOVOLOG) 1 VIAL SQ SCH (11:50)
[2024-04-14] MEDS ORDERED: IBUPROFEN 600 MG TABLET (FP) PO ONE (12:14)
[2024-04-14] MEDS: IBUPROFEN 600 MG TABLET (FP) PO PRN (12:15)
[2024-04-14] MEDS: chlordiazePOXIDE HCL 25 MG CAPSULE PO PRN (12:52)
[2024-04-14] MEDS: chlordiazePOXIDE HCL 25 MG CAPSULE PO SCH (17:26)
[2024-04-14] MEDS: risperiDONE 1 MG TABLET PO SCH (22:29)
[2024-04-14] MEDS: THIAMINE 100 MG TABLET PO SCH (22:29)
[2024-04-14] MEDS: MELATONIN 5 MG TABLETS PO SCH (22:29)
[2024-04-14] MEDS: DIVALPROEX SODIUM 500 MG TABLET E.C. PO SCH (22:29)
[2024-04-14] MEDS: ATORVASTATIN CA 20 MG TABLET (FP) PO SCH (22:29)
[2024-04-14] MEDS: QUEtiapine FUMARATE 50 MG TABLET PO SCH (22:30)
[2024-04-14] MEDS: APIXABAN 5 MG TABLET PO SCH (22:30)
[2024-04-15] MEDS: methaDONE 80 MG, methaDONE 10 MG PO SCH (05:29)
[2024-04-15] MEDS ORDERED: methaDONE HCL 40 MG DISPERSABLE TABLET PO SCH (06:00)
[2024-04-15] MEDS ORDERED: INSULIN ASPART SLIDING SCALE (NOVOLOG) 1 VIAL SQ ONE (06:13)
[2024-04-15] MEDS: metFORMIN HCL 500 MG TABLET (FP) PO SCH (06:17)
[2024-04-15] MEDS: DAPAGLIFLOZIN PROPANEDIOL 5 MG TABLET PO SCH (06:17)
[2024-04-15] MEDS ORDERED: DAPAGLIFLOZIN PROPANEDIOL 5 MG TABLET PO SCH ×2 (08:00→10:00)
[2024-04-15] MEDS: PRENATAL VITAMINS W/ FOLIC ACID TABLET (FP) PO SCH (10:27)
[2024-04-15 11:43] LABS: HEMATOCRIT 39.6 % (32.4-45.2); HEMOGLOBIN 13.6 GM/dL (10.7-15.3); MCH 30.8 pg (25.7-33.7); MCHC 34.4 g/dl (32.0-36.0); MEAN CELL VOLUME 89.8 fl (80-96); MEAN PLT VOLUME 10.4 fl (7.5-11.1); PLATELET COUNT 240 10^3/uL (134-434); RBC 4.41 M/mm3 (3.60-5.2); RDW 13.3 % (11.6-15.6); WHITE BLOOD COUNT 9.1 K/mm3 (4.0-10.0)
[2024-04-15 12:06] LABS: CALCIUM 9.5 mg/dL (8.5-10.1)
[2024-04-15 12:07] LABS: BILIRUBIN,TOTAL 0.3 mg/dL (0.2-1); BLOOD UREA NITROGEN 9.6 mg/dL (7-18); TOT PROT 6.6 g/dl (6.4-8.2)
[2024-04-15 12:10] LABS: CREATININE 0.5 mg/dL (0.55-1.3)
[2024-04-16] MEDS: chlordiazePOXIDE HCL 25 MG CAPSULE PO SCH (05:59)
[2024-04-17] MEDS ORDERED: chlordiazePOXIDE HCL 10 MG CAPSULE PO PRN
[2024-04-17] MEDS: chlordiazePOXIDE HCL 10 MG CAPSULE PO SCH (05:31)
[2024-04-17] MEDS: ACETAMINOPHEN 325 MG TABLET (FP) PO PRN (14:08)
[2024-04-17 17:26] VITALS: RESP 16
[2024-04-17] MEDS: DIVALPROEX SODIUM 500 MG TABLET E.C. PO SCH (22:26)
[2024-04-17] MEDS: risperiDONE 2 MG TABLET PO SCH (22:27)
[2024-04-18] MEDS ORDERED: chlordiazePOXIDE HCL 10 MG CAPSULE PO SCH (05:00)
[2024-04-18 13:39] VITALS: BP 110/65; PULSE 101; TEMP 97.3
[2024-04-19] MEDS ORDERED: chlordiazePOXIDE HCL 10 MG CAPSULE PO ONE (05:00)
== END 2024-04-18 14:32 | disposition home or self-care (01) | DRG 773 ==
LOC: YASAS 10:18 → Y3N 12:15
PROVIDERS: ADMIT Allergy & Immunology; ATTEND Surgery
PROC: HZ2ZZZZ Detoxification Services for Substance Abuse Treatment (ICD-10-PCS; principal; 2024-04-14)
DX: F10.230 Alcohol dependence with withdrawal, uncomplicated (principal); F11.20 Opioid dependence, uncomplicated; F14.20 Cocaine dependence, uncomplicated; F17.210 Nicotine dependence, cigarettes, uncomplicated; F31.9 Bipolar disorder, unspecified; F19.980 Other psychoactive substance use, unspecified with psychoactive substance-induced anxiety disorder; M54.59 Other low back pain; G89.29 Other chronic pain; E78.5 Hyperlipidemia, unspecified; G47.00 Insomnia, unspecified; Z88.0 Allergy status to penicillin; Z91.013 Allergy to seafood; Z86.69 Personal history of other diseases of the nervous system and sense organs; Z86.718 Personal history of other venous thrombosis and embolism; Z86.19 Personal history of other infectious and parasitic diseases; Z86.711 Personal history of pulmonary embolism; Z79.01 Long term (current) use of anticoagulants; Z79.4 Long term (current) use of insulin; Z79.84 Long term (current) use of oral hypoglycemic drugs; Z56.0 Unemployment, unspecified
CPT/HCPCS: 36415; 80053; 80164; 80305; 80307; 81025; 82962; 85027; 86780; 93005; 93010